=== PATIENT | male | born 1970 | race Caucasian/White ===

== ENCOUNTER 2016-11-24 20:05 | Emergency (ER) | payer MEDICAID ==
[~2016-11-24] VITALS: Ht 182.9 cm; Wt 122.5 kg
[2016-11-24] MEDS ORDERED: MECLIZINE CHEWABLE 25 MG TAB PO ONE (21:00)
[2016-11-24] MEDS ORDERED: MECLIZINE CHEWABLE 25 MG TAB ONE (21:20)
[2016-11-24 21:53] VITALS: BP 123/93
== END 2016-11-24 21:56 | disposition home or self-care (01) ==
LOC: ED 21:53
DX: Z76.0 Encounter for issue of repeat prescription (principal); R42 Dizziness and giddiness; R11.0 Nausea; I10 Essential (primary) hypertension
CPT/HCPCS: 70450; 99284